=== PATIENT | male | born 1955 | race Caucasian/White ===

== ENCOUNTER 2019-05-26 10:07 | Emergency (ER) | payer OTHER, SELFPAY ==
--- NOTE | ~2019-05-26 | XR_ITS ---
EXAMINATION: XR chest 2V 05/26/2019 11:13 INDICATION: Shortness of breath and cough PROCEDURE: 2 view chest COMPARISON: Comparison to multiple prior studies sequentially, with oldest reviewed study dated 02/22. FINDINGS: The lungs are clear. The cardiomediastinal silhouette is within normal limits. There are no pleural effusions. There is no pneumothorax suspected. The lungs are hyperinflated which is cons istent with, but not diagnostic of chronic obstructive pulmonary disease. IMPRESSION: 1: NO ACUTE CARDIOPULMONARY DISEASE. Reviewed, dictated and finalized at [facility]
[2019-05-26 10:30] VITALS: BP 132/84; PULSE 108; RESP 24; TEMP 36.8; O2SAT 92
--- NOTE | 2019-05-26 11:00 | ED.GENADULT ---
HPI - General Adult General Chief complaint: Upper Respiratory Infection Stated complaint: Sob/Cold/Flu symptoms Time Seen by Provider: 05/26/19 11:00 Source: patient Mode of arrival: ambulatory Limitations: no limitations History of Present Illness HPI narrative: 64-year-old male patient presents to the the medical center with complaints of cold symptoms for the past week. Patient states he thinks he might of had the flu last week when his symptoms started but states that his symptoms have progressively gotten worse with complaints of shortness of breath, cough. Patient states that he is an active smoker. Denies getting a flu shot this year. Patient states he has tried some [id number] cough syrup but denies any other medications for symptoms. Related Data Allergies Allergy/AdvReac Type Severity Reaction Status Date / Time No Known Allergies Allergy Verified 05/26/19 11:42 Review of Systems Review of Systems: Narrative: CONSTITUTIONAL: Denies fever, chills, or sweats. EYES: Denies visual changes, redness, or discharge. ENT: Denies rhinorrhea, congestion, sore throat, or otalgia. CARDIOVASCULAR: Denies chest pain, palpitations, or edema. RESPIRATORY: Positive cough with dyspnea. GASTROINTESTINAL: Denies abdominal pain, nausea, vomiting, or diarrhea. GENITOURINARY: Denies dysuria or hematuria. SKIN: Denies rash or itching. MUSCULOSKELETAL: Denies back pain, joint pain, or myalgia. NEUROLOGIC: Denies headache, numbness, or weakness. PSYCHIATRIC: Denies anxiety or depression. PMFSH Comments At the time of my signature I agree with nursing past medical history, surgical, social, and family history. There is no relevant family history pertinent to the presenting complaint. Exam Narrative: Exam Narrative: GENERAL: ill-appearing, well-nourished, and in no acute distress. HEAD: Normocephalic, atraumatic. EYES: PERRLA and EOMI. ENT: Nares clear, no rhinorrhea or epistaxis. Mucous membranes moist. Bilateral TMs are clear with no erythema or foreign bodies to the canal. Posterior pharynx with no erythema, tonsillar margin, exudates or lesions present. NECK: Supple. No lymphadenopathy CHEST: Patient has decreased lung sounds noted to bilateral in upper lobes with expiratory wheezing and tightness. Patient does have some labored breathing noted and talking in slight broken sentences. HEART: Regular rate and rhythm. No murmur heard. Normal peripheral pulses. ABDOMEN: Soft, nontender, nondistended, normal active bowel sounds. EXTREMITIES: Normal range of motion. No edema. SKIN: Warm, dry, no rash. NEURO: No focal deficits. Alert and oriented x3. Course Reevaluation(s) Reevaluation #1: Reevaluated patient after his DuoNeb was completed. Patient states he does feel a little bit better after receiving the DuoNeb. Patient's lungs continue to be decreased but no wheezing noted. Discussed with patient that his x-ray is negative for pneumonia however I am concerned he might have an atypical pneumonia given his symptoms therefore I am going to discharge him home with an antibiotic, oral steroid and a daily albuterol inhaler. Discussed with patient I want him to use his albuterol inhaler every 4 hours for the next 2 to 3 days. Discussed with patient that if he does not see improvement in symptoms in the next 24 to 48 hours I am want him to go to the ER for further evaluation and treatment. Discussed with patient that his x-ray does suggest that there might be some COPD component going on with him as well which she would need further evaluation and treatment by his primary doctor and I encouraged him to call make an appointment with them today. Patient verbalized understanding denies any other questions or concerns at this time. Date: 05/26/19 Time: 12:00 Vital Signs Vital signs: Vital Signs Temperature 36.8 C 05/26/19 10:30 Pulse Rate 108 H 05/26/19 10:30 Respiratory Rate 24 H 05/26/19 10:30 Blood Pressure 132/84 05/26/19 10:30 Pulse
[2019-05-26] MEDS: ALBUTEROL SULFATE NEB 2.5 MG/3 ML INH INHALATION (11:22)
[2019-05-26] MEDS: IPRATROPIUM BR 0.02% INH SOLN 0.5 MG/2.5 ML VIAL INHALATION (11:22)
== END 2019-05-26 12:09 | disposition home or self-care (01) ==
PROVIDERS: Emergency Provider Nurse Practitioner Family
DX: J06.9 Acute upper respiratory infection, unspecified (principal); R06.02 Shortness of breath; F17.200 Nicotine dependence, unspecified, uncomplicated
CPT/HCPCS: 71046; 94640; 99203; G0463